=== PATIENT | male | born 1975 | race Caucasian/White ===

== ENCOUNTER 2018-03-23 05:44 | Inpatient (IN) | payer OTHER ==
[~2018-03-23] VITALS: Ht 182.9 cm; Wt 84.8 kg
== END 2018-03-25 13:20 | disposition home or self-care (01) | DRG 343 ==
LOC: ER 05:44 → O/R 16:09 → SURH 20:02
PROVIDERS: ADMIT Surgery
PROC: 0DTJ4ZZ Resection of Appendix, Percutaneous Endoscopic Approach (ICD-10-PCS; principal; 2018-03-23 18:00)
DX: K35.890 Other acute appendicitis without perforation or gangrene (principal); I10 Essential (primary) hypertension